=== PATIENT | female | born 2000 | race Caucasian/White ===

== ENCOUNTER 2021-02-19 15:53 | Emergency (ER) | payer OTHER ==
[2021-02-19 17:49] LABS: Absolute Lymphocytes (CBC) 1.6 K/uL (0.7-4.9); Basophils % 0.2 % (0-1.3); Lymphocytes % 11.6 % (15.3-44.8); MPV 7.4 fL (7.6-11.3); RBC Red Blood Cell Count 4.29 M/uL (3.86-4.86)
[2021-02-19 17:59] LABS: BUN Blood Urea Nitrogen 4 mg/dL (7-18); Bicarbonate 24 mmol/L (21-32); Glucose Level 96 mg/dL (74-106); Magnesium 2.2 mg/dL (1.8-2.4); Potassium 3.5 mmol/L (3.5-5.1); Sodium Level 140 mmol/L (136-145)
[2021-02-19 19:24] LABS: Urine Blood 2+ (Negative); Urine Glucose Negative (Negative); Urine Protein Negative (Negative)
--- NOTE | 2021-02-19 19:56 | ER ---
Nurse's Notes [facility] Name: Geneva Del Real Age: 20 yrs Sex: Female : 2000 Arrival Date: 02/19/2021 Time: 15:56 Bed 28 Private MD: Diagnosis: Person with feared health complaint in whom no diagnosis is made Presentation: 02/19 16:21 Chief complaint: Patient states: 24 weeks . Took my BP and it was 174/150. ca1 Reports dizziness and lightheadedness. Denies HX of preeclampsia with previous . Coronavirus screen: Client denies travel out of the [place] in the last 14 days. At this time, the client does not indicate any symptoms associated with coronavirus-19. Ebola Screen: Patient negative for fever greater than or equal to 101.5 degrees Fahrenheit, and additional compatible Ebola Virus Disease symptoms Patient denies exposure to infectious person. Patient denies travel to an Ebola-affected area in the 21 days before illness onset. No symptoms or risks identified at this time. Initial Sepsis Screen: Does the patient meet any 2 criteria? No. Patient's initial sepsis screen is negative. Does the patient have a suspected source of infection? No. Patient's initial sepsis screen is negative. Risk Assessment: Do you want to hurt yourself or someone else? Patient reports no desire to harm self or others. Onset of symptoms was February 19, 2021. 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 - Social history:: Smoking status: Patient denies any tobacco usage or history of. Screenin:50 Abuse screen: Denies threats or abuse. Denies injuries from another. Nutritional iw screening: No deficits noted. Tuberculosis screening: No symptoms or risk factors identified. Fall Risk None identified. Assessment: 17:50 General: Appears in no apparent distress. Behavior is calm, cooperative. Pain: Denies iw pain. Neuro: Level of Consciousness is awake, alert, obeys commands, Oriented to person, place, time, situation, Reports dizziness. Respiratory: Airway is patent Respiratory effort is even, unlabored, Respiratory pattern is regular, symmetrical. 19:51 Reassessment: Patient appears in no apparent distress at this time. Patient and/or iw family updated on plan of care and expected duration. Pain level reassessed. Patient is alert, oriented x 3, equal unlabored respirations, skin warm/dry/pink. Vital Signs: 16:21 BP 130 / 77; Pulse 108; Resp 18 S; Temp 97.3(TE); Pulse Ox 100% on R/A; Weight 86.18 kg ca1 (R); Height 5 ft. 0 in. (152.40 cm) (R); Pain 0/10; 19:51 BP 112 / 99; Pulse 92; Resp 16; Pulse Ox 99% on R/A; iw 16:21 Body Mass Index 37.11 (86.18 kg, 152.40 cm) ca1 ED Course: 15:56 Patient arrived in ED. as 16:25 Triage completed. ca1 16:25 Arm band placed on right wrist. ca1 17:19 Liagn Mckinley NP is PHCP. pm1 17:19 Shekhar Hall MD is Attending Physician. pm1 17:50 Zuly Be RN is Primary Nurse. iw 17:50 Patient has correct armband on for positive identification. iw 17:50 Initial lab(s) drawn, by me, sent to lab. Inserted saline lock: 20 gauge in left iw antecubital area, using aseptic technique. Blood collected. 18:00 No provider procedures requiring assistance completed. iw 20:15 IV discontinued, intact, bleeding controlled, No redness/swelling at site. Pressure iw dressing applied. Administered Medications: No medications were administered Outcome: 19:55 Discharge ordered by MD. pm1 20:16 Discharged to home ambulatory, with family. iw 20:16 Condition: good 20:16 Discharge instructions given to patient, family, Instructed on discharge instructions, follow up and referral plans. Demonstrated understanding of instructions, follow-up care. 20:17 Patient left the ED. iw Signatures: Desiree Pradhan as Zuly Be RN RN iw Liang Mckinley NP SAP TRAINER pm1 Nelida Last RN RN ca1 Corrections: (The following items were deleted from the chart) 16:26 16:21 Chief complaint: Patient states: Took my BP and it was 174/150. Reports dizziness ca1 and lightheadedness. ca1
--- NOTE | 2021-02-19 19:56 | EDPHYS ---
Physician Documentation [facility] Name: Geneva Del Real Age: 20 yrs Sex: Female : 2000 Arrival Date: 02/19/2021 Time: 15:56 Bed 28 Private MD: ED Physician Shekhar Hall HPI: 02/19 17:36 This 20 yrs old Female presents to ER via Wheelchair with complaints of High pm1 Blood Pressure. 17:36 The patient has elevated blood pressure and discovered this at home. Onset: The pm1 symptoms/episode began/occurred today. Associated signs and symptoms: Pertinent positives: dizziness, lightheadedness, Pertinent negatives: headache. Severity of symptoms: in the emergency department the blood pressure is now normal. The blood pressure problem is resolved, and did so earlier today. The patient has not experienced similar symptoms in the past. It is unknown whether or not the patient has recently seen a physician. No history of preeclampsia. 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 - Social history:: Smoking status: Patient denies any tobacco usage or history of. ROS: 17:36 Constitutional: Negative for fever, chills, and weight loss, Cardiovascular: Negative pm1 for chest pain, palpitations, and edema, Respiratory: Negative for shortness of breath, cough, wheezing, and pleuritic chest pain, Abdomen/GI: Negative for abdominal pain, nausea, vomiting, diarrhea, and constipation, MS/Extremity: Negative for injury and deformity, Skin: Negative for injury, rash, and discoloration. 17:36 Neuro: Positive for dizziness, Negative for headache. Exam: 17:36 Constitutional: This is a well developed, well nourished patient who is awake, alert, pm1 and in no acute distress. Head/Face: Normocephalic, atraumatic. 17:36 Back: No spinal tenderness. No costovertebral tenderness. Full range of motion. Skin: Warm, dry with normal turgor. Normal color with no rashes, no lesions, and no evidence of cellulitis. MS/ Extremity: Pulses equal, no cyanosis. Neurovascular intact. Full, normal range of motion. 17:36 Cardiovascular: Exam negative for acute changes, Rate: normal, Rhythm: regular, Pulses: no pulse deficits are appreciated, Heart sounds: normal, normal S1and S2. 17:36 Respiratory: Exam negative for acute changes, respiratory distress, shortness of breath, Breath sounds: are clear throughout. 17:36 Abdomen/GI: Inspection: gravid appearance, Palpation: abdomen is soft and non-tender, in all quadrants. 17:36 Neuro: Exam negative for acute changes, Orientation: is normal, Mentation: is normal, Motor: is normal, moves all fours, Sensation: is normal, no obvious gross deficits, Gait: is steady, at a normal pace, without difficulty. Vital Signs: 16:21 BP 130 / 77; Pulse 108; Resp 18 S; Temp 97.3(TE); Pulse Ox 100% on R/A; Weight 86.18 kg ca1 (R); Height 5 ft. 0 in. (152.40 cm) (R); Pain 0/10; 19:51 BP 112 / 99; Pulse 92; Resp 16; Pulse Ox 99% on R/A; iw 16:21 Body Mass Index 37.11 (86.18 kg, 152.40 cm) ca1 MDM: 17:19 Patient medically screened. pm1 19:54 Data reviewed: vital signs. Data interpreted: Pulse oximetry: on room air is 99 %. pm1 Interpretation: normal. Counseling: I had a detailed discussion with the patient and/or guardian regarding: the historical points, exam findings, and any diagnostic results supporting the discharge/admit diagnosis, lab results, the need for outpatient follow up, an OB/Gyne specialist, to return to the emergency department if symptoms worsen or persist or if there are any questions or concerns that arise at home. 02/19 17:30 Order name: CBC with Diff pm1 02/19 17:30 Order name: BMP pm1 02/19 17:30 Order name: Magnesium; Complete Time: 18:05 pm1 02/19 17:30 Order name: CBC with Automated Diff; Complete Time: 18:05 EDMS 02/19 17:30 Order name: Basic Metabolic Panel; Complete Time: 18:05 EDMS 02/19 19:23 Order name: Urine Dipstick-Ancillary [facility] 02/19 17:30 Order name: Urine Dipstick-Ancillary (obtain specimen); Complete Time: 19:07 pm1 02/19 17:30 Order name: IV Saline Lock; Complete Time: 17:39 pm1 Administered Medications: No medications were administered Disposition: 02/19/21 19:55 Discharged to Home. Impression: Person with feared health complaint in whom no diagnosis is made. - Condition is Stable. - Family Work Release, Medication Reconciliation Form, Thank You Letter, Antibiotic Education, Prescription Opioid Use form. - Follow up: Emergency Department; When: As needed; Reason: Worsening of condition. Follow up: Private Physician; When: 2 - 3 days; Reason: Recheck today's complaints, Continuance of care, Re-evaluation by your physician. - Problem is new. - Symptoms have improved. Addendum: 02/21/2021 06:52 Co-signature as Attending Physician, Shekhar Hall MD I agree with the assessment and c omalley plan of care. Signatures: Dispatcher [employer] [facility] Shekhar Hall MD MD cha Williams, Irene, RN RN iw Liang Mckinley, BERNARDO INTEGRATED CAMPAIGN MANAGER pm1 Nelida Last RN RN ca1 Corrections: (The following items were deleted from the chart) 02/19 20:17 19:55 02/19/2021 19:55 Discharged to Home. Impression: Person with feared health iw complaint in whom no diagnosis is made. Condition is Stable. Forms are Medication Reconciliation Form, Thank You Letter, Antibiotic Education, Prescription Opioid Use. Follow up: Emergency Department; When: As needed; Reason: Worsening of condition. Follow up: Private Physician; When: 2 - 3 days; Reason: Recheck today's complaints, Continuance of care, Re-evaluation by your physician. Problem is new. Symptoms have improved. pm1 21: 17:36 Associated signs and symptoms: Pertinent positives: dizziness, headache, pm1 pm1 21:07 17:36 Neuro: Positive for dizziness, headache, pm1 pm1
[2021-02-19 20:32] VITALS: TEMP 97.3
[2021-02-19 20:36] VITALS: BP 112/99; O2SAT 99
== END 2021-02-19 20:17 | disposition home or self-care (01) ==
LOC: ER 15:53
DX: Z71.1 Person with feared health complaint in whom no diagnosis is made (principal)
CPT/HCPCS: 36415; 80048; 81003; 83735; 85025; 99283

== ENCOUNTER 2022-11-20 17:38 | Emergency (ER) | payer OTHER ==
[2022-11-20 18:48] LABS: Urine Blood 3+ (Negative); Urine Glucose Negative (Negative); Urine Protein 1+ (Negative); Urine Specific Gravity 1.025 (1.005-1.030); Urine pH 6.5 (5.0-7.0)
[2022-11-20 18:52] LABS: Absolute Lymphocytes (CBC) 2.2 K/uL (0.7-4.9); Hematocrit 35.1 % (36.0-45.0); Lymphocytes % 17.1 % (15.3-44.8); MCV 81.7 fL (80-100); RBC Red Blood Cell Count 4.29 M/uL (3.86-4.86)
[2022-11-20 19:14] LABS: Urine Bacteria 20-50 /HPF (<20); Urine Crystals Unidentified Few /HPF (None Seen); Urine Mucus 1+ /HPF (None Seen)
--- NOTE | 2022-11-20 19:19 | RAD REPORT ---
EXAM DESCRIPTION: US - Matter Eval Tm 1 - 11/20/2022 7:08 pm CLINICAL HISTORY: VAGINAL BLEEDING COMPARISON: No comparisons FINDINGS: Single IUP identified with positive heart tones. The crown-rump length measures 3.8 cm which is consistent with 10 weeks 3 day. The heart rate is measured at 185 beats/minute. The right ovary measures 2.1 x 1.4 x 1.9 cm with volume of 2.9 cc. The left ovary measures 2.8 x 1.8 x 2.5 cm with volume of 6.5 cc. Both ovaries demonstrate vascular flow. IMPRESSION: Single IUP with positive heart tones measuring 10 weeks 3 day with ALFONZO of 06/15/20 23. Bilateral ovarian blood flow.
[2022-11-20 19:46] LABS: Urine Specific Gravity/Preg 1.025 (1.005-1.030)
[2022-11-20] MEDS ORDERED: NITROFURAN MACRO 100 MG CAP PO ONE (19:54)
[2022-11-20 20:38] LABS: Potassium 3.5 mmol/L (3.5-5.1)
--- NOTE | 2022-11-20 20:41 | ER ---
Nurse's Notes [facility] Name: Geneva Del Real Age: 22 yrs Sex: Female : 2000 Arrival Date: 11/20/2022 Time: 17:40 Bed 16 Private MD: Diagnosis: Threatened ;UTI/ Urinary tract infection, site not specified Presentation: 11/20 18:24 Chief complaint: Patient states: 10 weeks and reports passing a vaginal blood aa5 clot today around 2PM. Coronavirus screen: At this time, the client does not indicate any symptoms associated with coronavirus-19. Ebola Screen: Patient denies travel to an Ebola-affected area in the 21 days before illness onset. Initial Sepsis Screen: Does the patient meet any 2 criteria? No. Patient's initial sepsis screen is negative. Does the patient have a suspected source of infection? No. Patient's initial sepsis screen is negative. Risk Assessment: Do you want to hurt yourself or someone else? Patient reports no desire to harm self or others. Onset of symptoms was November 2022. 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 - Social history:: Smoking status: Patient denies any tobacco usage or history of. Screenin:[facility] ED Fall Risk Assessment (Adult) History of falling in the last 3 months, mb9 including since admission No falls in past 3 months (0 pts) Confusion or Disorientation No (0 pts) Intoxicated or Sedated No (0 pts) Impaired Gait No (0 pts) Mobility Assist Device Used No (0 pt) Altered Elimination No (0 pt) Score/Fall Risk Level 0 - 2 = Low Risk Oriented to surroundings, Maintained a safe environment, Educated pt \T\ family on fall prevention, incl call for assistance when getting out of bed. Abuse screen: Denies threats or abuse. Nutritional screening: No deficits noted. Tuberculosis screening: No symptoms or risk factors identified. Assessment: 19:26 Reassessment: pt brought back to room 16. mb9 19:53 General: Appears in no apparent distress. comfortable, Behavior is cooperative, mb9 appropriate for age. Pain: Denies pain. Neuro: Level of Consciousness is awake, alert, obeys commands, Oriented to person, place, time, situation, Appropriate for age. Cardiovascular: Capillary refill < 3 seconds is brisk Rhythm is regular. Respiratory: Airway is patent Respiratory effort is even, unlabored, Respiratory pattern is regular, symmetrical. GI: Abdomen is round non-distended, Patient currently denies epigastric pain, nausea. : Urine is cloudy, Reports passing a blood clot Denies discharge, vaginal bleeding. Derm: Skin is pink, warm \T\ dry. Musculoskeletal: Range of motion: intact in all extremities. Vital Signs: 18:24 BP 129 / 79; Pulse 103; Resp 16 S; Temp 98.2(TE); Pulse Ox 100% on R/A; Weight 90.72 kg aa5 (R); Height 5 ft. 0 in. (152.40 cm) (R); Pain 0/10; 18:24 Body Mass Index 39.06 (90.72 kg, 152.40 cm) aa5 ED Course: 17:40 Patient arrived in ED. as 18:16 Oralia Macias FNP-C is [facility]. kb 18:16 Omid Bradley MD is Attending Physician. kb 18:24 Arm band placed on. aa5 18:25 Triage completed. aa5 19:10 Matter Eval Tm 1 In Process Unspecified. EDMS 19:25 Placed in gown. Bed in low position. Call light in reach. Side rails up X 1. Client mb9 placed on continuous cardiac and pulse oximetry monitoring. NIBP monitoring applied. student accounts coordinator on. 19:26 Darlene Cobos, BRIA is Primary Nurse. mb9 19:55 Attending Physician role handed off by Omid Bradley MD rn 19:55 Azam Mccauley MD is Attending Physician. rn 20:00 No provider procedures requiring assistance completed. mb9 21:01 IV discontinued, intact, bleeding controlled, No redness/swelling at site. Pressure mb9 dressing applied. Administered Medications: 19:55 Drug: Macrobid (nitrofurantoin) 100 mg Route: PO; mb9 19:58 Follow up: Response: No adverse reaction mb9 Medication: 20:00 VIS not applicable for this client. mb9 Outcome: 20:40 Discharge ordered by . rn 21:01 Discharged to home ambulatory. mb9 21:01 Condition: stable 21:01 Discharge instructions given to patient, Instructed on discharge instructions, follow up and referral plans. Demonstrated understanding of instructions, follow-up care, medications, Prescriptions given X 1. 21:07 Patient left the ED. mb9 Signatures: Dispatcher [employer] EDMS Oralia Macias, VOICE STUDIES DIRECTOR-C VOICE STUDIES DIRECTOR-Ckb Desiree Pradhan Roman, MD MD rn Calderon, Audri RN RN aa5 Darlene Cobos RN RN mb9
--- NOTE | 2022-11-20 20:41 | EDPHYS ---
Physician Documentation [facility] Name: Geneva Del Real Age: 22 yrs Sex: Female : 2000 Arrival Date: 11/20/2022 Time: 17:40 Bed 16 Private MD: ED Physician Azam Mccauley HPI: 11/20 19:40 This 22 yrs old Female presents to ER via Ambulatory with complaints of kb Vaginal Bleeding, + Preg <12wks. 19:40 The patient presents to the emergency department with vaginal bleeding, passed a blood kb clot around 1342 today. The estimated gestational age is 10 weeks. course: care: private OB physician, in the [place]. Previous pregnancies: in previous pregnancies patient has had. Associated signs and symptoms: The patient has no apparent associated signs or symptoms. The patient has not experienced similar symptoms in the past. The patient has not recently seen a physician. Patient reports she passed a blood clot at 1342 today. Has had no bleeding since then.. 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 - Social history:: Smoking status: Patient denies any tobacco usage or history of. ROS: 19:39 Constitutional: Negative for fever, chills, and weight loss. kb 19:39 : Positive for vaginal bleeding. 19:39 All other systems are negative. Exam: 19:39 Constitutional: This is a well developed, well nourished patient who is awake, alert, kb and in no acute distress. Head/Face: Normocephalic, atraumatic. ENT: Moist Mucous membranes Cardiovascular: Regular rate and rhythm with a normal S1 and S2. No gallops, murmurs, or rubs. No pulse deficits. Respiratory: Respirations even and unlabored. No increased work of breathing. Talking in full sentences Abdomen/GI: Soft, non-tender. No distention Skin: Warm, dry with normal turgor. Normal color. MS/ Extremity: Pulses equal, no cyanosis. Neurovascular intact. Full, normal range of motion. Neuro: Awake and alert, GCS 15, oriented to person, place, time, and situation. Moves all extremities. Normal gait. Vital Signs: 18:24 BP 129 / 79; Pulse 103; Resp 16 S; Temp 98.2(TE); Pulse Ox 100% on R/A; Weight 90.72 kg aa5 (R); Height 5 ft. 0 in. (152.40 cm) (R); Pain 0/10; 18:24 Body Mass Index 39.06 (90.72 kg, 152.40 cm) aa5 MDM: 18:27 Patient medically screened. kb 19:38 Differential diagnosis: threatened Ab. Data reviewed: vital signs, nurses notes. kb Counseling: I had a detailed discussion with the patient and/or guardian regarding: the historical points, exam findings, and any diagnostic results supporting the discharge/admit diagnosis, lab results, radiology results, the need for outpatient follow up, an OB/Gyne specialist, to return to the emergency department if symptoms worsen or persist or if there are any questions or concerns that arise at home. 20:00 Transition of care: After a detail discussion of the patient's case, care is kb transferred to Azam Mccauley MD. 11/20 18:27 Order name: Abo/rh Typing; Complete Time: 19:02 kb 11/20 18:27 Order name: Basic Metabolic Panel; Complete Time: 20:40 kb 11/20 18:27 Order name: CBC with Diff; Complete Time: 19:02 kb 11/20 18:27 Order name: Quantitative Hcg; Complete Time: 20:40 kb 11/20 18:48 Order name: Urine --Ancillary (enter results); Complete Time: 19:47 bd 11/20 18:48 Order name: Urine Dipstick-Ancillary; Complete Time: 18:51 EDMS 11/20 18:27 Order name: IV Saline Lock; Complete Time: 18:47 kb 11/20 18:27 Order name: Labs collected and sent; Complete Time: 18:47 kb 11/20 18:27 Order name: NPO; Complete Time: 18:43 kb 11/20 18:51 Order name: Urine Microscopic Only; Complete Time: 19:19 kb 11/20 19:10 Order name: Matter Eval Tm 1; Complete Time: 19:26 EDMS 11/20 19:23 Order name: Urine Culture EDMS 11/20 18:27 Order name: Urine Dipstick-Ancillary (obtain specimen); Complete Time: 18:47 kb 11/20 18:27 Order name: Urine Test (obtain specimen); Complete Time: 18:47 kb 11/20 18:57 Order name: Labs - recollect needed: recollect green top; Complete Time: 19:53 bd Administered Medications: 19:55 Drug: Macrobid (nitrofurantoin) 100 mg Route: PO; mb9 19:58 Follow up: Response: No adverse reaction mb9 Disposition: 20:41 Co-signature as Attending Physician, Azam Mccauley MD I reviewed the patient's care rn provided by the Advanced Practice Provider and agree with the diagnosis and treatment plan. Disposition Summary: 11/20/22 20:40 Discharge Ordered Location: Home rn Condition: Stable rn Diagnosis - Threatened rn - UTI/ Urinary tract infection, site not specified rn Followup: kb - With: Emergency Department - When: As needed - Reason: Worsening of condition Followup: kb - With: Private Physician - When: 2 - 3 days - Reason: Recheck today's complaints, Continuance of care, Re-evaluation by your physician Discharge Instructions: - Discharge Summary Sheet kb - Urinary Tract Infection, Adult, [id number] kb - Threatened Miscarriage, [id number] kb Forms: - Medication Reconciliation Form rn - Thank You Letter rn - Antibiotic rn case management - Prescription Opioid Use rn Prescriptions: - Macrobid 100 mg Oral Capsule - take 1 capsule by ORAL route every 12 hours for 10 days; 20 capsule; Refills: kb 0, Product Selection Permitted Signatures: Dispatcher [employer] EDMS Oralia Macias, MOLD BUILDER-C MOLD BUILDER-Ckb Sima Harris Roman, MD MD rn Calderon, Audri RN RN [email or web address] Darlene Cobos, RN RN mb9 Corrections: (The following items were deleted from the chart) 19:10 18:28 Transvaginal Ob+US.RAD.BRZ ordered. EDMS EDMS
[2022-11-20 21:34] VITALS: BP 129/79; TEMP 98.2; O2SAT 100
== END 2022-11-20 21:07 | disposition home or self-care (01) ==
LOC: ER 17:38
DX: O20.0 Threatened abortion (principal); O23.41 Unspecified infection of urinary tract in pregnancy, first trimester; N39.0 Urinary tract infection, site not specified; Z3A.10 10 weeks gestation of pregnancy
CPT/HCPCS: 36415; 76801; 80048; 81003; 81015; 81025; 84702; 85025; 86900; 86901; 87077; 87086; 87088; 87186; 99284